=== PATIENT | female | born 1985 | race American Indian/Alaskan Native ===

== ENCOUNTER 2017-03-29 06:36 | Day surgery (SDC) | payer MEDICARE ==
[2017-03-29] MEDS ORDERED: DIPRIVAN 10 MG/ML IV ONE (07:41)
[2017-03-29] MEDS ORDERED: NACL 0.9% 1000 ML 1,000 ML IV SCH (08:00)
--- NOTE | 2017-03-29 08:08 | Anesthesia Consultation ---
Anesthesia Consult and Med Hx Date of service: 03/29/17 - Airway Anesthetic Teeth Evaluation: Good ROM Head & Neck: Adequate Mental/Hyoid Distance: Adequate Mallampati Class: Class II Intubation Access Assessment: Probably Good - Pulmonary Exam CTA: Yes - Cardiac Exam Cardiac Exam: RRR - Pre-Operative Health Status ASA Pre-Surgery Classification: ASA3 Proposed Anesthetic Plan: MAC - Pulmonary Hx Smoking: No Hx Asthma: No COPD: No Hx Pneumonia: No - Cardiovascular System Hx Hypertension: No Hx Coronary Artery Disease: No Hx Heart Attack/AMI: No Hx Angina: No Hx Cardia Arrhythmia: No Hx Heart Murmur: No - Central Nervous System Hx Seizures: No Hx Psychiatric Problems: No - Gastrointestinal Hx Gastroesophageal Reflux Disease: Yes (nexium daily) - Endocrine Hx Renal Disease: No Hx End Stage Renal Disease: No Hx Hypothyroidism: No Hx Hyperthyroidism: No - Hematic Hx Anemia: No Hx Sickle Cell Disease: No - Other Systems Hx Alcohol Use: Yes Hx Obesity: Yes (sp gastric bypass '14) - Additional Comments Anesthesia Medical History Comments: NAC
--- NOTE | 2017-03-29 08:08 | Anesthesia Day of Surgery ---
Anesthesia Day of Surgery - Day of Surgery Patient Examined: Yes Patient H&P Reviewed: Yes Patient is NPO: Yes
--- NOTE | 2017-03-29 08:43 | Operative Report ---
Operative Report Operative Report: EGD Post bypass DATE: 03/29/17 OPERATIVE REPORT - EGD PREOP DIAGNOSIS: gastric dyspepsia, GERD POSTOP DIAGNOSIS: failure of GJ anastamosis SURGERY: Upper endoscopy. SURGEON: Hector Cheng M.D. TYPE OF ANESTHESIA: MAC. ESTIMATED BLOOD LOSS: None. COMPLICATIONS: None. SPECIMENS REMOVED: None. FINDINGS: 1. normal esophagus 2. gastric pouch - 30ml 3. gastrojejunal anastomosis is 25-30mm INDICATIONS:INDICATION FOR PROCEDURE: Patient is a 31-year-old female s/p gastric bypass in 2013. The patient is here today for evaluation for revisional surgery. The patient is here for a planned EGD for any pathology that could be contributing to her symptoms. PROCEDURE DETAILS: After consent was reviewed, patient was taken back to the operating room where patient was placed in the left lateral decubitus position and a bite block was placed in the mouth. After a time-out was called, MAC anesthesia was initiated. I then passed the endoscope into the patients oropharynx, into the esophagus, visualized the entire esophagus, which was all within normal limits. I then visualized the gastric pouch which was normal and about 30ml in size. The gastrojejunal anastomosis was enlarged at about 25-30mm. The proximal portion of the henrietta limb was normal. I then desufflated the gastric pouch and removed the endoscope. Patient tolerated procedure well and was transferred to recovery room in good and stable condition.
--- NOTE | 2017-03-29 08:44 | Discharge Summary ---
Providers - Providers Date of discharge: 03/29/17 Attending physician: PRINCESS ROMERO Primary care physician: EZIO KENNEDY Hospitalization Condition: Good Procedures: egd Disposition: DC- TO HOME OR SELFCARE Core Measure Documentation - Palliative Care Palliative Care/ Comfort Measures: Not Applicable - Core Measures Any of the following diagnoses?: none Exam - Physical Exam Narrative exam: unchanged from pre-op - Constitutional Vitals: Temp Pulse Resp BP Pulse Ox 98.1 F 92 H 19 141/85 100 03/29/17 07:41 03/29/17 07:41 03/29/17 07:41 03/29/17 07:41 03/29/17 07:41 Plan Activity: no restrictions Weight Bearing Status: Full Weight Bearing Diet: regular Follow up with: EZIO KENNEDY MD [Primary Care Provider] - 7 Days
--- NOTE | 2017-03-29 09:01 | Post Anesthesia Evaluation ---
- Post Anesthesia Evaluation Patient Participated: Yes Airway Patent: Yes Stable Respiratory Function: Yes Nausea/Vomiting: No Temp > 96.8F: Yes Pain Manageable: Yes Adequeate Hydration: Yes Anesthesia Complications: No Block Receding Appropriately: Not Applicable Patient on Ventilator: No
[2017-03-29 10:03] VITALS: BP 129/70
== END 2017-03-29 06:37 | disposition home or self-care (01) ==
LOC: GIO 06:36
PROVIDERS: ATTEND Surgery
DX: K91.89 Other postprocedural complications and disorders of digestive system (principal); K21.9 Gastro-esophageal reflux disease without esophagitis; E66.9 Obesity, unspecified; Z68.36 Body mass index [BMI] 36.0-36.9, adult; Z72.89 Other problems related to lifestyle; Z91.040 Latex allergy status; Z91.013 Allergy to seafood; Z91.018 Allergy to other foods; Y83.8 Other surgical procedures as the cause of abnormal reaction of the patient, or of later complication, without mention of misadventure at the time of the procedure
CPT/HCPCS: 43235; J2704; J7030

== ENCOUNTER 2020-03-11 15:19 | Observation (INO) | payer MEDICARE ==
[2020-03-11] MEDS ORDERED: ACETAMINOPHEN 325 MG TAB PO PRN (17:13)
[2020-03-11] MEDS ORDERED: oxyCODONE /ACETAMINOPHEN 5-325MG TAB PO PRN (17:13)
[2020-03-11] MEDS ORDERED: ONDANSETRON 4 MG/2 ML INJ IV PRN (17:13)
[2020-03-11] MEDS ORDERED: ZOLPIDEM 5 MG TAB PO PRN (17:13)
[2020-03-11] MEDS ORDERED: NALOXONE 0.4 MG/1 ML INJ IV PRN (17:13)
--- NOTE | 2020-03-11 17:21 | Event Note ---
Date: 03/11/20 pt with rt kidney stone & stent worse pain despite oral therapy----intractile will admit today OR tomorrow for cysto probable stent removal at pt request
[2020-03-11] MEDS ORDERED: SODIUM CHLORIDE 0.45% 1000 ML 1,000 ML IV SCH (18:00)
[2020-03-11 21:40] LABS: Hematocrit 37.8 % (30.3-42.9); Hemoglobin 11.9 gm/dl (10.1-14.3); Mean Corpuscular HGB Conc 32 % (30-34); Mean Corpuscular Volume 81 fl (79-97); Platelet Count 415 K/mm3 (140-440); Red Blood Count 4.68 M/mm3 (3.65-5.03); Red Cell Distribution Width 25.4 % (13.2-15.2)
[2020-03-11 21:55] LABS: Blood Urea Nitrogen 6 mg/dL (7-17); Calcium 9.3 mg/dL (8.4-10.2); Hemolysis Index 5
[2020-03-11 22:00] LABS: BUN/Creatinine Ratio 9
[2020-03-11 22:14] LABS: Basophils % (Manual) 0 % (0.0-1.8); Total Cells Counted 100
[2020-03-11 22:16] LABS: Anisocytosis 2+; Ovalocytes Few; Poikilocytosis 1+
[2020-03-11] MEDS: HEPARIN 5,000 UNIT/1 ML VIAL SUB-Q SCH (22:22)
[2020-03-11 22:55] LABS: Bilirubin,Urine NEG (Negative); Blood,Urine LG (Negative); Color,Urine Yellow (Yellow); Mucus,Urine 3+ /HPF; Urobilinogen,Urine < 2.0 mg/dL (<2.0)
[2020-03-11 22:56] LABS: RBC,Urine > 182.0 /HPF (0.0-6.0)
[2020-03-11] MEDS: MORPHINE 2 MG/1 ML INJ IV PRN (23:34)
--- NOTE | 2020-03-12 01:02 | Cat Scan Report ---
CT ABDOMEN AND PELVIS WITHOUT CONTRAST INDICATION: Right-sided flank pain. TECHNICAL: Multiple axial CT images of the abdomen and pelvis were acquired without intravenous contr ast. Sagittal and coronal reformats were obtained. All CTs at this facility utilize dose reduction techniques including automated exposure control, iterative reconstruction and weight based dosing whe n appropriate to reduce patient radiation dose to as low as reasonable achievable. COMPARISON: No prior cross-sectional imaging is available for comparison. Abdominal radiograph from was reviewed. FINDINGS: Limited imaging of the bilateral lung bases demonstrates no acute abnormality. Abdomen: Within the limitations of today's noncontrast study, the liver, gallbladder, spleen, pancrea s, bilateral adrenal glands and bilateral kidneys show no evidence of acute abnormality. A right-side d ureteral stent is present and projects in expected anatomic position. There is no significant right -sided hydronephrosis or perinephric stranding. Several nonobstructing right intrarenal stones are no jose, the largest of which measures 4 mm. There is no evidence of bowel obstruction. The appendix is v isualized and appears normal. Pelvis: No free fluid is seen within the pelvis. The urinary bladder appears within normal limits and contains the distal portion of the stent catheter. Bones and Soft Tissues: Evaluation of bony structures demonstrates no evidence of acute bony abnorma lity. Evaluation of soft tissue structures demonstrates no evidence of acute soft tissue abnormality. IMPRESSION: 1. Right-sided ureteral stent catheter projects in expected anatomic position without significant rig ht-sided hydronephrosis. Signer Name: Janna Baez MD Signed: 03/12/2020 12:57 AM Workstation Name: [id number]
[2020-03-12] MEDS: MORPHINE 2 MG/1 ML INJ IV PRN (05:54)
[2020-03-12] MEDS: HEPARIN 5,000 UNIT/1 ML VIAL SUB-Q SCH (06:02)
[2020-03-12 07:12] LABS: HCG Qualitative,Urine Negative (Negative)
[2020-03-12] MEDS ORDERED: fentaNYL 100 MCG/2 ML INJ IV PRN (07:34)
[2020-03-12] MEDS ORDERED: MIDAZOLAM 2 MG/2 ML INJ IV NR (08:00)
[2020-03-12] MEDS ORDERED: LACTATED RINGERS 1,000 ML IV SCH (08:30)
--- NOTE | 2020-03-12 09:04 | Anesthesia Day of Surgery ---
Anesthesia Day of Surgery - Day of Surgery Patient Examined: Yes Patient H&P Reviewed: Yes Patient is NPO: Yes
--- NOTE | 2020-03-12 09:04 | Anesthesia Consultation ---
Anesthesia Consult and Med Hx Date of service: 03/12/20 - Airway Anesthetic Teeth Evaluation: Good ROM Head & Neck: Adequate Mental/Hyoid Distance: Adequate Mallampati Class: Class III Intubation Access Assessment: Possibly Difficult - Pulmonary Exam CTA: Yes - Cardiac Exam Cardiac Exam: RRR - Pre-Operative Health Status ASA Pre-Surgery Classification: ASA3 Proposed Anesthetic Plan: General - Pulmonary Hx Smoking: No Hx Respiratory Symptoms: No - Cardiovascular System Hx Hypertension: Yes Hx Heart Attack/AMI: No Hx Percutaneous Transluminal Coronary Angioplasty (PTCA): No Hx Cardia Arrhythmia: No - Central Nervous System CVA: No - Gastrointestinal Hx Gastroesophageal Reflux Disease: Yes (nexium daily) - Endocrine Hx Renal Disease: No Hx Liver Disease: No Hx Insulin Dependent Diabetes: No Hx Non-Insulin Dependent Diabetes: No Hx Thyroid Disease: No - Hematic Hx Anemia: No - Other Systems Hx Obesity: Yes (BMI 41) - Additional Comments Anesthesia Medical History Comments: No hx anesthetic complications.
[2020-03-12] MEDS: fentaNYL 100 MCG/2 ML INJ IV PRN ×2 (09:15→09:52)
[2020-03-12] MEDS ORDERED: propofoL 200 MG/20 ML VIAL IV ONE (09:54)
[2020-03-12] MEDS ORDERED: WATER FOR IRRIG STERILE 1,500 ML BOTTLE IR ONE (10:22)
[2020-03-12] MEDS ORDERED: ONDANSETRON 4 MG/2 ML INJ ONE (10:32)
[2020-03-12] MEDS ORDERED: KETOROLAC 30 MG/1 ML INJ ONE (10:32)
--- NOTE | 2020-03-12 10:34 | Short Stay Summary ---
Short Stay Documentation Date of service: 03/12/20 - History H&P: obtained from office - Allergies and Medications Current Medications: Allergies latex Allergy (Verified 11/30/15 11:01) Unknown Penicillins Allergy (Unverified 03/11/20 16:24) Unknown strawberry Allergy (Verified 11/30/15 11:01) Unknown SEAFOOD Allergy (Uncoded 03/29/17 09:34) Unknown Home Medications Medication Instructions Recorded Confirmed Last Taken Type Esomeprazole Magnesium [NexIUM] 40 mg PO QDAY 11/30/15 11/30/15 03/28/17 History Vit No.129/Iron/Folic 1 each PO DAILY 11/30/15 11/30/15 11/29/15 10:00 History [ Tablet] 1 tab Acetaminophen/Codeine [Tylenol #3] 1 tab PO Q6H PRN #30 tab 12/02/15 Unknown Rx Ferrous Sulfate [Feosol 325 MG tab] 325 mg PO BID #120 tablet 12/02/15 Unknown Rx Active Medications Acetaminophen (Tylenol) 650 mg PO Q4H PRN PRN Reason: Pain MILD(1-3)/Fever >100.5/NICOLAS Fentanyl (Sublimaze) 50 mcg IV Q5MIN PRN PRN Reason: Pain , Severe (7-10) Stop: 03/12/20 23:00 Heparin Sodium (Porcine) (Heparin) 5,000 unit SUB-Q Q8HR FLORES Last Admin: 03/12/20 06:02 Dose: 5,000 unit Documented by: Lactated Ringer's (Lactated Ringers) 1,000 mls @ 100 mls/hr IV DIRECT FLORES Last Admin: 03/12/20 09:00 Dose: 100 mls/hr Documented by: Levofloxacin/Dextrose (Levaquin 500mg/100ml) 500 mg in 100 mls @ 100 mls/hr IV PREOP NR; Protocol Stop: 03/12/20 21:00 Midazolam HCl (Versed) 2 mg IV PREOP NR Stop: 03/12/20 23:59 Last Admin: 03/12/20 09:05 Dose: 2 mg Documented by: Morphine Sulfate (Morphine) 2 mg IV Q4H PRN PRN Reason: Pain, Moderate (4-6) Last Admin: 03/12/20 05:54 Dose: 2 mg Documented by: Naloxone HCl (Naloxone) 0.1 mg IV Q2MIN PRN PRN Reason: Res Rate </= 8 or 02 SAT < 92% Ondansetron HCl (Zofran) 4 mg IV Q8H PRN PRN Reason: Nausea And Vomiting Oxycodone/Acetaminophen (Percocet 5/325) 1 tab PO Q6H PRN PRN Reason: Pain, Moderate (4-6) Sodium Chloride (Sodium Chloride Flush Syringe 10 Ml) 10 ml IV BID FLORES Last Admin: 03/11/20 22:00 Dose: 10 ml Documented by: Sodium Chloride (Sodium Chloride Flush Syringe 10 Ml) 10 ml IV PRN PRN PRN Reason: LINE FLUSH Zolpidem Tartrate (Ambien) 5 mg PO QHS PRN PRN Reason: Insomnia Last Admin: 03/12/20 00:40 Dose: 5 mg Documented by: - Brief post op/procedure progress note Date of procedure: 03/12/20 Pre-op diagnosis: rt kidney stone , stent Post-op diagnosis: same Procedure: cysto, rpg, stent removal Anesthesia: GETA Surgeon: ANIKA BISHOP Estimated blood loss: none Condition: stable - Hospital course Hospital course: macrobid & percocet 5/325 - Disposition Condition at discharge: Stable Disposition: DC-01 TO HOME OR SELFCARE Short Stay Discharge Plan Follow up with: PRIMARY CARE, [Primary Care Provider] - 7 Days
[2020-03-12 11:50] VITALS: BP 151/69
--- NOTE | 2020-03-12 13:00 | Operative Report ---
PREOPERATIVE DIAGNOSIS: Right kidney stone, status post stent placement, intractable pain. POSTOPERATIVE DIAGNOSIS: Right kidney stone, status post stent placement, intractable pain. PROCEDURE: Cystoscopy, bilateral retrograde pyelogram, removal of right double-J stent, passed stones. SURGEON: Jorje Mendez MD ANESTHESIA: General. ESTIMATED BLOOD LOSS: Minimal. FLUIDS: Crystalloid. COMPLICATIONS: No complications. INDICATIONS: This patient is a 34-year-old female initially seen in December with a CT that revealed a distal 4 mm stone and a 7 mm stone, both on the right side. X-ray was performed at [facility]. She underwent cystoscopy, stent placement and lithotripsy at [facility]. Her distal stone appeared to have passed the proximal stone, stent, lithotripsy. She had required a second lithotripsy due to residual fragments, smaller, but still a residual fragment. However, at this point, she started to have worsening pain. We rescheduled for nephrostomy tube and percutaneous nephrolithotomy for this 5-6 mm fragment, when she developed intractable pain requiring admission for removal of her stent. DESCRIPTION OF PROCEDURE: The patient was taken to the operative suite, placed in a supine position after adequate general anesthesia, placed in a dorsal lithotomy position, prepped and draped in a sterile fashion. Pancystourethroscopy was performed with a 22-Albanian Storz cystoscope, no acute bladder pathology. Right stent in good position. No obvious stones could be appreciated. Left retrograde pyelogram was obtained with an 8-Albanian Broadwater catheter and 8 mL of contrast. No filling defects or obstruction. Right-sided stent was removed. No stone could be appreciated on fluoroscopy; however, small fragments could now be appreciated in the distal ureter that came out into the bladder, too small to retrieve. Right retrograde pyelogram just revealed a dilated tract consistent with stent placement. At this point, it appears she has passed all her fragments. Bladder was drained. She was extubated and taken to recovery room. She will go home on Macrobid and Percocet. JOB# [id number] C/NTS
--- NOTE | 2020-03-12 13:35 | Post Anesthesia Evaluation ---
- Post Anesthesia Evaluation Patient Participated: Yes Airway Patent: Yes Stable Respiratory Function: Yes Nausea/Vomiting: No Temp > 96.8F: Yes Pain Manageable: Yes Adequeate Hydration: Yes Anesthesia Complications: No
--- NOTE | 2020-03-12 14:40 | Fluoroscopy Report ---
FL retrograde urography INDICATION / CLINICAL INFORMATION: HEAMTURIA/RT STENT PAIN. COMPARISON: None available. FINDINGS: Injection of both ureters. Left ureter and collecting system normal. Right-sided ureteral narrowing a t the level the pelvis with small stone fragments noted distally. More proximal dilatation is present . Fluoroscopy time: 23 seconds.. Fluoroscopic images: 7. Signer Name: Ciro Chance MD Signed: 03/12/2020 2:35 PM Workstation Name: [id number]
== END 2020-03-12 15:00 | disposition home or self-care (01) ==
LOC: 3A 15:19 → UNDOADMOB 15:19 → 3B-SURG 20:48
PROVIDERS: ADMIT Urology; ATTEND Urology
DX: N20.0 Calculus of kidney (principal); Z91.040 Latex allergy status; Z88.0 Allergy status to penicillin; Z91.018 Allergy to other foods; Z91.013 Allergy to seafood
CPT/HCPCS: 36415; 52310; 74176; 74420; 80048; 81001; 81025; 85025; 87086; 96361; 96372; 96374; 96376; C1758; G0378; G0379; J1644; J1885; J2250; J2270; J2405; J2704; J3010; J7030; J7120; Q9967; 85007; 96375; J1956

== ENCOUNTER 2021-02-20 07:12 | Outpatient (CLI) | payer MEDICARE ==
--- NOTE | 2021-02-20 09:10 | Cat Scan Report ---
CT OF THE ABDOMEN AND PELVIS WITHOUT CONTRAST INDICATION / CLINICAL INFORMATION: CALCULUS OF KIDNEY. TECHNIQUE: All CT scans at this location are performed using CT dose reduction for ALARA by means of automated exposure control. COMPARISON: 03/11/20. FINDINGS: ABDOMEN: There is a 5 mm nonobstructive calculus in the right mid kidney. There is a 1 mm nonobstruct salvatore calculus in the left mid kidney. I see no evidence of ureteral calculus, hydronephrosis, perineph marcelina soft tissue stranding or renal mass. There are surgical changes characteristic of gastrojejunal gastric bypass. The liver, spleen, gallbla dder, bile ducts, pancreas, adrenal glands and bowel demonstrate no significant abnormality. No adeno truong is present. The lung bases are clear. PELVIS: The distal ureters and urinary bladder are normal. The uterus is deviated to the left of midl ine. There is no evidence of adnexal mass or free fluid. The cecum is located in the right mid abdome n. A normal appendix is present. There is no evidence of diverticulitis. There is mild diastases of t he rectus sheath centered at the umbilicus without focal hernia. A benign sclerotic lesion in the L3 vertebral body is again identified and has not changed significan tly. IMPRESSION: Minimal bilateral nonobstructive nephrolithiasis. Signer Name: Vincenzo Joseph MD Signed: 02/20/2021 9:05 AM Workstation Name: [id number]
== END 2021-02-20 07:13 | disposition home or self-care (01) ==
LOC: CT 07:12
PROVIDERS: ATTEND Urology
DX: N20.0 Calculus of kidney (principal)
CPT/HCPCS: 74176

== ENCOUNTER 2021-09-08 08:47 | Outpatient (CLI) | payer MEDICARE ==
--- NOTE | 2021-09-08 10:53 | Cat Scan Report ---
CT abdomen pelvis wo con INDICATION: CALCULUS OF KIDNEY. COMPARISON: 02/20/21 TECHNIQUE: Abdominal and pelvic CT exam performed. All CT scans at this location are performed using CT dose reduction for ALARA by means of automated exposure control. FINDINGS: CT ABDOMEN and PELVIS: Lung Bases: No significant abnormality. Liver: No significant abnormality. Biliary: No significant abnormality. Spleen: No significant abnormality. Pancreas: No significant abnormality. Adrenals: No significant abnormality. Kidneys: There are 3 punctate nonobstructing left renal stones. There is a 6 mm right midpole nonobst ructing stone which is unchanged. There are 3 other small punctate nonobstructing right renal stones. The overall stone count has mildly increased compared to prior exam. Lymphatics: No lymphadenopathy. No hydronephrosis. Vasculature: No significant abnormality. 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 No significant abnormality. Pelvis: No significant abnormality. Osseous Structures: No aggressive osseous lesion. L3 vertebral body hemangioma. Additional Findings: None IMPRESSION: 1. Nonobstructive nephrolithiasis is mildly worse than prior exam. Signer Name: Kendrick Workman MD Signed: 09/08/2021 10:48 AM Workstation Name: [id number]
== END 2021-09-08 08:48 | disposition home or self-care (01) ==
LOC: CT 08:47
PROVIDERS: ATTEND Urology
DX: N20.0 Calculus of kidney (principal)
CPT/HCPCS: 74176